=== PATIENT | female | born 1955 | race Caucasian/White ===

== ENCOUNTER 2021-06-19 10:41 | Emergency (ER) | payer OTHER, MEDICARE ==
[~2021-06-19] VITALS: Ht 177.8 cm; Wt 85.7 kg
[2021-06-19] MEDS ORDERED: LEVOTHYROXINE125 MC1 PO (10:53)
[2021-06-19] MEDS ORDERED: TOPAMAX100 MG PO (10:53)
[2021-06-19] MEDS ORDERED: ONDANSETRON ODT8 MG PO (13:46)
[2021-06-19] MEDS ORDERED: HYDROCODON-ACE1 EA11 PO (13:46)
[2021-06-19] MEDS ORDERED: CRUTCH1 EACH MISC (13:49)
== END 2021-06-19 14:00 | disposition home or self-care (01) ==
LOC: ED 10:41
DX: S82.832A Other fracture of upper and lower end of left fibula, initial encounter for closed fracture (principal); E03.9 Hypothyroidism, unspecified; Z79.890 Hormone replacement therapy; Z79.899 Other long term (current) drug therapy; W00.0XXA Fall on same level due to ice and snow, initial encounter
CPT/HCPCS: 29515; 73600; 73610; 99283-25; A9270; J1170